=== PATIENT | female | born 1975 | race Caucasian/White ===

== ENCOUNTER 2016-07-27 19:59 | Emergency (ER) | payer OTHER ==
--- NOTE | ~2016-07-27 | EKG ---
PATIENT: ALLEN AHUJA UNIT #: [id number] Ventricular Rate: 82 BPM Atrial Rate: 82 BPM P-R Interval: 144 ms QRS Duration: 72 ms Q-T Interval: 384 ms QTC Calculation(Bezet): 448 ms P Benedict: 60 degrees Calculated R Benedict: 56 degrees Calculated T Benedict: 45 degrees Diagnosis Line: Normal sinus rhythm Diagnosis Line: Normal ECG Diagnosis Line: When compared with ECG of 10-OCT-2015 09:48, Diagnosis Line: No significant change was found Diagnosis Line: Confirmed by BELÉN SANCHEZ MD ([id number]) on Diagnosis Line: 07/28/2016 11:12:03 PM INTERPRETING : DAISY
--- NOTE | ~2016-07-27 | CR63 ---
[facility] A Service of [facility] RADIOLOGY TEXT RESULTS PATIENT: ALLEN AHUJA LOCATION: [facility] : 73 UNIT #: [id number] AGE: [address]: Dave Nunez MD SEX: F ORDER DR: [id number] [facility] [address] [place], [place] [address] [id number] MR#: [id number] Acc #: [id number] NAME: ALLEN AHUJA : 1975 SEX: F STUDY DATE/TIME: 07/27/2016 21:04 UNIT: [facility] ROOM: STUDY DESCRIPTION: CR Chest 2 View Attending Physician: Dave Nunez M.D. Ordering Physician: Dave Nunez M.D. MEDICAL IMAGING REPORT This report is preliminary unless electronic signature is present EXAM Chest x-ray HISTORY Cough and congestion with painful respirations for the past 2-3 days. TECHNIQUE 2 views of the chest were obtained. COMPARISON STUDIES 10/11/2015. FINDINGS PA and lateral examination of the chest upright shows a good expansion of the parenchyma with a normal distribution of the pulmonary vascularity. There is no indication of congestion, effusion, infiltrate, tumor, or nodular density. The pleural reflections and diaphragmatic contours are normal. The cardiac silhouette and mediastinal anatomy is within normal limits. IMPRESSION Normal chest. Dictated by... Dave Russell M.D. THIS IS AN ELECTRONICALLY VERIFIED REPORT Dave Russell M.D. at 07/27/2016 10:23 PM RLF/pcl [facility] A Service of [facility] RADIOLOGY TEXT RESULTS PATIENT: ALLEN AHUJA LOCATION: [facility] : 73 UNIT #: [id number] AGE: [address]: Dave Nunez MD SEX: F ORDER DR: TD: 07/27/2016 21:45 JOB #: [id number] MEDICAL IMAGING REPORT Page 1 of 1 COPY
[2016-07-27 19:35] LABS: BASOPHIL# 0.1 X10e3 (0-0.3); BASOPHIL% 0.9 % (0-2.5); EOSINOPHIL# 0.1 X10e3 (0-0.7); EOSINOPHIL% 1.2 % (0.0-7.0); HEMATOCRIT 39.9 % (35.0-45.0); LYMPHOCYTE# 1.7 X10e3 (1.0-3.5); LYMPHOCYTE% 22.2 % (17.0-45.0); MEAN CELL VOLUME 86.7 FL (83-96); MEAN CORPUSCULAR HEMOGLOBIN 28.2 PG (28-34); MEAN CORPUSCULAR HGB CONC 32.5 g/dL (30-36); MEAN PLATELET VOLUME 7.7 FL (6.5-11.5); MONOCYTE# 0.7 X10e3 (0-1.0); MONOCYTE% 9.3 % (3.0-12.0); NEUTROPHIL# 5.2 X10e3 (1.5-7.1); NEUTROPHIL% 66.4 % (40-75); PLATELET COUNT 325 X10e3 (140-420); RED BLOOD COUNT 4.61 X10e (3.90-5.30); RED CELL DISTRIBUTION WIDTH 13.6 % (11.0-15.5); WHITE BLOOD COUNT 7.8 X10e3 (4.0-10.5)
[2016-07-27 19:38] LABS: DIFF IND NO
[2016-07-27 19:53] LABS: POC - CKMB 3.8 ng/mL (0.0-7.9); POC - TROPONIN <0.05 ng/mL (<=0.05)
[~2016-07-27 19:59] MED LIST: ACYCLOVIR; ACYCLOVIR PO; AMITRYPTYLINE PO; BACTRIM DS TABL1 TAB PO; ELIMITE60 GM TOP; FLEXERIL PO; IBUPROFEN; KEFLEX PO; KETOPROFEN PO; MEDROL PO; NORCO1 TAB 10/3 PO; PHENERGAN25 MG PO; PREDNISONE PO; TYL325 PO; VICODIN 5/500 T1 TAB PO; VICODIN PO; ZOVIRAX800 MG PO
[2016-07-27 20:02] LABS: ALBUMIN SERUM 4.4 g/dL (3.5-5.0); BILIRUBIN, DIRECT 0.1 mg/dL (0.0-0.2); BILIRUBIN,INDIRECT 0.7 mg/dL (0.0-0.9); BILIRUBIN,TOTAL 0.8 mg/dL (0.2-2.0); BUN/CREATININE RATIO 16.25; CALCIUM SERUM 9.1 mg/dL (8.4-10.2); CREATININE SERUM 0.8 mg/dL (0.6-1.4); PROTEIN TOTAL SERUM 7.8 g/dL (6.0-8.3)
[2016-07-27 20:03] LABS: POTASSIUM 3.1 mmol/L (3.5-5.1)
[2016-07-27 20:49] LABS: AMPHETAMINE POS (NEG); BARBITURATES NEG (NEG); BENZODIAZEPINES NEG (NEG); COCAINE NEG (NEG); MARIJUANA NEG (NEG); OPIATES NEG (NEG); TRICYCLIC ANTIDEPRESSANTS POS (NEG); U METHADONE NEG (NEG)
[2016-07-27 21:08] LABS: POC - CKMB 3.8 ng/mL (0.0-7.9); POC - TROPONIN <0.05 ng/mL (<=0.05)
== END 2016-07-27 22:15 | disposition home or self-care (01) ==
LOC: CED 19:59
PROVIDERS: Emergency Medicine
DX: R09.1 Pleurisy (principal); E87.6 Hypokalemia; B02.9 Zoster without complications; F17.200 Nicotine dependence, unspecified, uncomplicated
CPT/HCPCS: 36415; 71020; 80048; 80076; 80307; 82553; 84484; 84703; 85025; 85379; 93005; 96361; 96374; 96375; 99284; J2270; J2930